=== PATIENT | male | born 1940 | race Caucasian/White ===

== ENCOUNTER → 2016-12-01 | Outpatient (CLI) | payer MEDICARE ==
[~2016-12-01] MED LIST: ALLO100T; ASPI-587 PO; CLIN300C3 PO; FAMO10TA43 PO; GLIM2TAB PO; GLIP5TAB26 PO; HYDR-1231 PO; LINA5TAB PO; MTF500T PO; PARO10TA2; POLY17PO23 GT
--- NOTE | 2016-12-01 18:57 | Diagnostic Imaging Report ---
EXAMINATION: Two views of the lumbar spine. INDICATION: Back pain. FINDINGS: There is a grade 1 spondylolisthesis of L4 over L5 level. The vertebral body heights are preserved. Disc heights are also generally preserved except for mild disc height loss at L5/S1. There is prominent degenerative changes at the facet joints in the lower lumbar spine. Sacroiliac joints demonstrate mild sclerotic degenerative changes. IMPRESSION: Grade 1 spondylolisthesis of L4 over L5. Prominent degenerative changes in the lower lumbar spine facet joints and L5/S1 disc. Dictated by: Dictated on workstation # [id number]
== END ==
LOC: RAD 14:37
PROVIDERS: ATTEND Family Medicine
DX: M43.16 Spondylolisthesis, lumbar region (principal); M47.816 Spondylosis without myelopathy or radiculopathy, lumbar region; M51.37 Other intervertebral disc degeneration, lumbosacral region
CPT/HCPCS: 72100

== ENCOUNTER → 2018-02-06 | Outpatient (CLI) | payer MEDICARE ==
--- NOTE | 2018-02-06 12:36 | Diagnostic Imaging Report ---
INDICATION: Right hip pain. TIME OF EXAMINATION: 11:18 AM. FINDINGS: Two views of the right hip demonstrate normal femoroacetabular alignment. There are significant osteoarthritic changes of the right hip with complete loss of the superior joint space. There is some sclerosis present of the femoral head and acetabulum. Mild spurring at the femoral head/neck junction is also seen. The femoral head and neck are intact. There are no fractures seen. IMPRESSION: Significant osteoarthritic changes of the right hip. No acute bony abnormality is identified. Dictated by: Dictated on workstation # [id number]
== END ==
LOC: RAD 10:28
PROVIDERS: ATTEND Family Medicine
DX: M16.11 Unilateral primary osteoarthritis, right hip (principal)
CPT/HCPCS: 73502

== ENCOUNTER 2022-06-22 13:06 | Emergency (ER) | payer MEDICARE, BC ==
[~2022-06-22] VITALS: Ht 172 cm; Wt 100.0 kg
--- NOTE | 2022-06-22 13:31 | ED Head Injury ---
General Chief Complaint: Trauma-Non Activation Stated Complaint: FALL | HEAD INJ Nursing Triage Note: PT STATES HE WAS GETTING ON A [id number] AND TRIPPED AND FELL, CC OF A LAC TO THE POSTERIOR HEAD. 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 Patient fell from standing height around 1230 this afternoon. 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 This resulted in a contusion with bleeding to the posterior scalp. Bleeding did stop. He denies blood thinners besides aspirin. Denies loss of consciousness. Granddaughter who was at the house called another family member who brought patient to the ED. Noted slurring of words but that has improved. Denies of any current head pain, neck pain, unilateral muscle weakness or sensory changes, vomiting, visual changes. Not up-to-date on his tetanus. He reports history of difficulty walking secondary to defect and arthritic joints. Patient neuro exam unremarkable. Allergies and Home Medications Allergies Coded Allergies: No Known Drug Allergies (Unverified , 07/20/13) Patient Home Medication List Home Medication List Reviewed: Yes Allopurinol (Allopurinol) 100 Mg Tablet, (Reported) Entered as Reported by: JENNIFER RUDD on 09/16/14 1125 Aspirin (Aspir 81) 81 Mg Tablet., 81 MG PO DAILY, (Reported) Entered as Reported by: ERIC GARDNER on 07/20/13 0911 Clindamycin Hcl (Cleocin Hcl) 300 Mg Capsule, 1 EACH PO QID Prescribed by: RHIANNON NUNO on 09/16/14 1522 Famotidine (Pepcid Ac) 10 Mg Tablet, 10 MG PO AC PRN for HEARTBURN, (Reported) Entered as Reported by: ERIC GARDNER on 07/20/13 0911 Glimepiride (Glimepiride) 2 Mg Tablet, 2 MG PO BID, (Reported) Entered as Reported by: ERIC GARDNER on 07/20/13 0911 Glipizide (Glipizide Er) 5 Mg Tab.er.24, 2.5 MG PO DAILY, (Reported) Entered as Reported by: ERIC GARDNER on 07/20/13 09 Hydrocodone Bit/Acetaminophen (Hydrocodone-Apap 5-325 Tablet) 1 Tab Tablet, 1-2 TAB PO Q6H PRN for PAIN Prescribed by: RHIANNON NUNO on 09/16/14 1523 Linagliptin (Tradjenta) 5 Mg Tablet, 5 MG PO DAILY, (Reported) Entered as Reported by: JENNIFER RUDD on 09/16/14 1125 Metformin Hcl (Metformin 500 Mg) 500 Mg Tablet, 1 EACH PO TIDWM, (Reported) Entered as Reported by: ERIC GARDNER on 07/20/13 09 Paroxetine Hcl (Paroxetine Hcl) 10 Mg Tablet, (Reported) Entered as Reported by: JENNIFER RUDD on 09/16/14 1125 Polyethylene Glycol (Miralax 17 Gm Packet) 17 Gm Pack, 17 GM GT PRN, (Reported) Entered as Reported by: ERIC GARDNER on 07/20/13 09 Review of Systems Review of Systems Constitutional: No chills, No diaphoresis, No malaise, No weakness Eyes: Denies Drainage, Denies Decreased Acuity, Denies Pain Ears, Nose, Mouth, Throat: denies ear pain, denies ear discharge, denies nose pain Respiratory: No cough, No short of breath Cardiovascular: No chest pain, No edema Gastrointestinal: No abdominal pain, No diarrhea, No nausea, No vomiting Genitourinary: No decreased output, No discharge Musculoskeletal: No back pain, No joint pain Skin: change in color All Other Systems Reviewed Negative Unless Noted: Yes Past Mmkhmgt-Twugoh-Txvjbl Hx Patient Social History Tobacco Use?: No Substance use?: No Alcohol Use?: No Past Medical History Surgery/Hospitalization HX: TYPE II DIABETIC Appendectomy TIA Gout Diabetes, Non-Insulin dep Anxiety Adverse Reaction/Blood Tranf: No Physical Exam Vital Signs Vital Signs - First Documented 06/22/22 13:11 Temp 36.1 Pulse 79 Resp 18 B/P (MAP) 180/80 (113) Pulse Ox 96 O2 Delivery Room Air Capillary Refill : Less Than 3 Seconds Height, Weight, BMI Height: 5'9" Weight: 201lbs. oz. 91.456342ip; 33.00 BMI Method:Stated General Appearance: WD/WN, no apparent distress HEENT: PERRL/EOMI, normal ENT inspection, TMs normal, pharynx normal Neck: non-tender, full range of motion, supple, normal inspection Cardiovascular: regular rate, rhythm, no edema, no gallop, no JVD Respiratory: chest non-tender, lungs clear, normal breath sounds, no respiratory distress, no accessory muscle use Gastrointestinal: normal bowel sounds, non tender, soft Back: normal inspection, no CVA tenderness, no vertebral tenderness Extremities: normal range of motion, non-tender, normal inspection Crainal Nerves: normal hearing, normal speech, PERRL Coordination/Gait: normal finger to nose, normal gait Motor/Sensory: no motor deficit, no sensory deficit Skin: other (Contusion to the posterior scalp with soft tissue. No crepitus step-off) Meng Coma Score Best Eye Response: (4) Open Spontaneously Best Verbal Response: (5) Oriented Best Motor Response: (6) Obeys Commands Meng Total: 15 Progress/Results/Core Measures Results/Orders Lab Results Laboratory Tests Test 06/22/22 13:40 Range/Units Glucometer 64 L 70-110 MG/DL My Orders Orders - JEANA LANE Ct Head/Cervical Spine Wo (06/22/22 13:21) Dipht,Pertuss(Acell),Tet Adult (Boostrix (06/22/22 13:45) Medications Given in ED Current Medications Medications Dose Ordered Sig/Annalise Route Start Time Stop Time Status Last Admin Dose Admin Diphtheria/ Tetanus/Acell Pertussis 0.5 ml ONCE ONCE IM 06/22/22 13:45 06/22/22 13:46 DC 06/22/22 14:11 0.5 ML Vital Signs/I&O 06/22/22 06/22/22 13:11 15:06 Temp 36.1 36.1 Pulse 79 71 Resp 18 18 B/P (MAP) 180/80 (113) 142/105 Pulse Ox 96 96 O2 Delivery Room Air Room Air Blood Pressure Mean: 113 Departure Communication (PCP) Reviewed all previous ER visits, H&P, lab test. Patient with a mechanical fall. Denied loss of consciousness or on blood thinners. Does take a baby aspirin. GCS 15. Neurologically intact. According to granddaughter patient was slurring words before arrival. No evidence at this time. Patient has a contusion to the posterior scalp. Skin is soft and torn. Not able to approximate the skin secondary to skin tearing. No active bleeding. I Was able to clean the area with normal saline and apply bandage over the area. He had no cervical midline tenderness. Patient states he has limitations to walking secondary to defects in his lower extremities. Patient wears a special brace to his left leg. CT scan of the head and cervical neck read by myself was initially negative for acute hemorrhaging, fracture. Radiologist reviewed of the CT scan was negative for acute abnormality such as fracture or hemorrhaging. Patient w as observed here in the ED. Patient was given a tetanus shot as he is not updated. No vomiting, visual changes, unilateral muscle weakness or sensory changes. No concussion-like symptoms at this time. Recommend rest for the next 2 to 3 days. Discussed watching him for any change in behavior, vomiting, increasing and worsening hip pain. If any worsening symptoms strongly recommend returning back to ED. Family agrees with plan of action. Impression Primary Impression: Head injury Disposition: HOME, SELF-CARE Condition: Stable Departure-Patient Inst. Decision time for Depature: 14:52 Referrals: RIMMA AUGUST DO (PCP/Family) Primary Care Physician Patient Instructions: Minor Head Injury Add. Discharge Instructions: Recommend Neosporin at least once or twice a day. Keep the area covered. If any worsening symptoms such as increased head pain, vomiting, disoriented to return back to ED. Recommend resting for the next couple days. All discharge instructions reviewed with patient and/or family. Voiced understanding. JEANA LANE Jun 22, 2022 13:31
[2022-06-22] MEDS ORDERED: TETANUS,DIPTH,PERTUSS P/F (BOOSTRIX) 0.5 ML VIAL IM ONE (13:45)
--- NOTE | 2022-06-22 14:36 | Diagnostic Imaging Report ---
PROCEDURE: CT head and CT cervical spine without contrast. TECHNIQUE: Multiple contiguous axial images were obtained through the brain and cervical spine without the use of intravenous contrast. Sagittal and coronal reformations through the cervical spine were then performed. Auto Exposure Controls were utilized during the CT exam to meet ALARA standards for radiation dose reduction. INDICATION: Fall, lacerations to the back of the head, hypoglycemia. Compared with head CT 12/11/2013. Head: There is midline scalp irregularities posteriorly and superiorly, the underlying calvarium however appeared intact and there is no intracranial hemorrhage or acute appearing extra-axial fluid collections. Chronic cerebral cortical atrophy and periventricular white matter changes showed a mild generalized interval progression over the past 8 years. There is progressive intracranial atherosclerotic vascular calcifications. This patient has a chronic lacunar infarct in the right paramedian francois, stable. No new site of abnormal intracranial parenchymal attenuation. No findings of focal or generalized cerebral edema. No mass effect. No pneumocephalus or hemo-sinus. Cervical spine: Degenerative changes to the discs, endplates, facets and uncovertebral joints was a chronic finding, however no cervical fracture or dislocation or traumatic listhesis, no paravertebral hemorrhage. Carotid atherosclerotic vascular calcifications chronic. No traumatic deformity to the hyoid, tracheal cartilage or structures of the larynx. The craniocervical relationship unremarkable. Central skull base appeared intact. Chronic degenerative disease results in moderate canal and severe right foraminal stenosis C3-C4. At C5-C6 there is moderate right and [id number] left foraminal stenosis with moderate to severe canal stenosis. At C6-C7 there are severe spinal canal and moderate severity of biforaminal stenoses. These are chronic findings. IMPRESSION: Head: Progressive chronic senescent changes, scalp injury but no appreciable fracture or intracranial hemorrhage. Cervical spine: Hypertrophic degenerative changes result in multilevel stenoses as a chronic finding but no fracture or traumatic malalignment. Dictated by: Dictated on workstation # [id number]
[2022-06-22 15:06] VITALS: BP 142/105
== END 2022-06-22 15:06 | disposition home or self-care (01) ==
LOC: EDUNIT# 13:06 → ER 13:09
DX: S09.90XA Unspecified injury of head, initial encounter (principal); S00.03XA Contusion of scalp, initial encounter; R40.2362 Coma scale, best motor response, obeys commands, at arrival to emergency department; R40.2142 Coma scale, eyes open, spontaneous, at arrival to emergency department; R40.2252 Coma scale, best verbal response, oriented, at arrival to emergency department; Z23 Encounter for immunization; W01.10XA Fall on same level from slipping, tripping and stumbling with subsequent striking against unspecified object, initial encounter
CPT/HCPCS: 70450; 72125; 82947; 90715